=== PATIENT | male | born 1990 | race Caucasian/White ===

== ENCOUNTER 2018-05-20 19:20 | Observation (INO) | payer OTHER ==
--- NOTE | 2018-05-20 20:22 | EDM.PDOC ---
ED HPI GENERAL MEDICAL PROBLEM - General Chief Complaint: Fever Stated Complaint: PT HAS INFECTION AND FEVER Time Seen by Provider: 05/20/18 20:22 Source of Information: Reports: Patient History Limitations: Reports: No Limitations - History of Present Illness INITIAL COMMENTS - FREE TEXT/NARRATIVE: HISTORY AND PHYSICAL: History of present illness: Patient is a 27-year-old male who presents to the ED today with concern of an infection on his buttocks. Patient states that over the past week the infection has spread. He states over the past 3 days he started to have fevers and chills at home but never checked temperature. He states he's been taking Tylenol for relief of pain. 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 He states his last use of methamphetamine was yesterday. Patient does also smoke a pack a day for 10 years. He denies injection with needles into his buttocks. Patient denies scrotal or testicular pain or tenderness. She states that last bowel movement was 2 days ago and was severely painful to half. Patient states he has been able to urinate per his normal. He denies any blood in his stool or urine. Review of systems: As per history of present illness and below otherwise all systems reviewed and negative. Past medical history: As per history of present illness and as reviewed below otherwise noncontributory. Surgical history: As per history of present illness and as reviewed below otherwise noncontributory. Social history: No reported history of drug or alcohol abuse. Family history: As per history of present illness and as reviewed below otherwise noncontributory. Physical exam: General: Patient sitting comfortably in no acute distress and nontoxic appearing HEENT: Atraumatic, normocephalic, pupils reactive, negative for conjunctival pallor or scleral icterus, mucous membranes moist, throat clear, neck supple, nontender, trachea midline. No meningeal signs. Lungs: Clear to auscultation, breath sounds equal bilaterally, chest nontender. Heart: S1S2, regular, negative for clicks, rubs, or overt murmur. Abdomen: Soft, nondistended, nontender. Negative for masses or hepatosplenomegaly. Negative for costovertebral tenderness. No rigidity, rebound , guarding. Pelvis: Stable nontender. Genitourinary: Deferred. Rectal: Rectal tone is intact. Patient does have an 11 cm x 12 cm area of induration and an additional 3 cm circumference outside of this of erythema. Severe pain to palpation. And unable to fully evaluate the depth of the induration due to pain. Extremities: Atraumatic, negative for cords or calf pain. Neurovascular unremarkable. Neuro: Awake, alert, oriented. Cranial nerves II through XII unremarkable. Cerebellum unremarkable. Motor and sensory unremarkable throughout. Exam nonfocal. Notes: Have started IV antibiotics in the ER. Awaiting CT. Did call Dr. Brown, general surgery, who recommended calling the hospitalist for admission. Did discuss patient with Dr. Funes who will admit patient for observation. Diagnostics: CBC, CMP, UA, blood cultures 2, lactate, pelvic CT Therapeutics: Saline, Vancomycin, Flagyl, Zosyn Impression: Abscess, buttocks Leukocytosis with fever Plan: 1. Admit to observation Definitive disposition and diagnosis as appropriate pending reevaluation and review of above. Right Butt Cheek Pain Score (Numeric/FACES): 9 - Related Data Allergies Allergy/AdvReac Type Severity Reaction Status Date / Time No Known Allergies Allergy Verified 05/20/18 20:07 Home Meds: Home Meds . [No Known Home Meds] 05/20/18 [History] Past Medical History - Past Health History Medical/Surgical History: Denies Medical/Surgical History - Infectious Disease History Infectious Disease History: Reports: Chicken Pox Social & Family History - Family History Family Medical History: Noncontributory - Tobacco Use Smoking Status *Q: Current Every Day Smoker Years of Tobacco use: 11 Packs/Tins Daily: 1 - Caffeine Use Caffeine Use: Reports: Coffee, Energy Drinks - Recreational Drug Use Recreational Drug Use: Yes Drug Use in Last 12 Months: Yes Recreational Drug Type: Reports: Marijuana/Hashish, Methamphetamine ED ROS ENT - Review of Systems Review Of Systems: ROS reveals no pertinent complaints other than HPI. ED EXAM, ENT - Physical Exam Exam: See Below (see dictation) Course - Vital Signs Last Recorded V/S: Last Vital Signs Temp 97.6 F 05/20/18 21:17 Pulse 117 H 05/20/18 20:07 Resp 18 05/20/18 20:07 BP 139/69 05/20/18 20:07 Pulse Ox 97 05/20/18 20:07 - Orders/Labs/Meds Orders: Active Orders 24 hr Category Date Time Status Admission Status [Patient Status] [ADT] Stat ADT 05/20/18 21:37 Active Pelvis w Cont [CT] Stat Exams 05/20/18 20:29 Ordered CULTURE BLOOD [BC] Stat Lab 05/20/18 20:43 Received CULTURE BLOOD [BC] Stat Lab 05/20/18 20:51 Received Piperacillin/Tazobactam [Piperacil-Tazobact] 3.375 gm Med 05/20/18 21:36 Active Sodium Chloride 0.9% [Normal Saline] 50 ml IV ONETIME Vancomycin [Vancocin] 1 gm Med 05/20/18 21:03 Active Sodium Chloride 0.9% [Normal Saline] 250 ml IV ONETIME metroNIDAZOLE/Normal Saline [Flagyl 500 MG in NS 100 ML Med 05/20/18 21:36 Active ] 500 mg Premix Bag 1 bag IV ONETIME Blood Culture x2 Reflex Set [OM.PC] Stat Oth 05/20/18 20:28 Ordered Medication Orders Vancomycin HCl 1 gm/ Sodium (Chloride) 250 mls @ 250 mls/hr IV ONETIME ONE Stop: 05/20/18 22:02 Metronidazole 500 mg/ Premix 100 mls @ 100 mls/hr IV ONETIME ONE Stop: 05/20/18 22:35 Piperacillin Sod/Tazobactam (Sod 3.375 gm/ Sodium Chloride) 50 mls @ 100 mls/ hr IV ONETIME ONE Stop: 05/20/18 22:05 Last Admin: 05/20/18 21:50 Dose: 100 mls/hr Labs: Laboratory Tests 05/20/18 05/20/18 05/20/18 Range/Units 20:51 20:51 20:51 WBC 16.54 H (4.0-11.0) K/uL RBC 4.51 (4.50-5.90) M/uL Hgb 13.6 (13.0-17.0) g/dL Hct 39.4 (38.0-50.0) % MCV 87.4 (80.0-98.0) fL MCH 30.2 (27.0-32.0) pg MCHC 34.5 (31.0-37.0) g/dL RDW Std Deviation 42.7 (28.0-62.0) fl RDW Coeff of Kalin 13 (11.0-15.0) % Plt Count 199 (150-400) K/uL MPV 10.30 (7.40-12.00) fL Neut % (Auto) 80.2 H (48.0-80.0) % Lymph % (Auto) 8.5 L (16.0-40.0) % [place] % (Auto) 11.2 (0.0-15.0) % Eos % (Auto) 0.0 (0.0-7.0) % Baso % (Auto) 0.1 (0.0-1.5) % Neut # (Auto) 13.3 H (1.4-5.7) K/uL Lymph # (Auto) 1.4 (0.6-2.4) K/uL [place] # (Auto) 1.9 H (0.0-0.8) K/uL Eos # (Auto) 0.0 (0.0-0.7) K/uL Baso # (Auto) 0.0 (0.0-0.1) K/uL Nucleated RBC % 0.0 /100WBC Nucleated RBCs # 0 K/uL Lactate 0.8 (0.20-2.00) mmol/L Sodium 134 L (136-148) mmol/L Potassium 4.0 (3.5-5.1) mmol/L Chloride 99 (98-107) mmol/L Carbon Dioxide 25.5 (21.0-32.0) mmol/L BUN 13 (7.0-18.0) mg/dL Creatinine 0.8 (0.8-1.3) mg/dL Est Cr Clr Drug Dosing 149.54 mL/min Estimated GFR (MDRD) > 60.0 ml/min Glucose 139 H (74-106) mg/dL Calcium 8.6 (8.5-10.1) mg/dL Total Bilirubin 0.7 (0.2-1.0) mg/dL AST 48 H (15-37) IU/L ALT 38 (14-63) IU/L Alkaline Phosphatase 85 (46-116) U/L Total Protein 7.2 (6.4-8.2) g/dL Albumin 2.9 L (3.4-5.0) g/dL Globulin 4.3 H (2.6-4.0) g/dL Albumin/Globulin Ratio 0.7 L (0.9-1.6) Meds: Medications Generic Name Dose Route Start Last Admin Trade Name Brianq PRN Reason Stop Dose Admin Vancomycin HCl 1 gm/ Sodium 250 mls @ 250 mls/hr 05/20/18 21:03 Chloride IV 05/20/18 22:02 ONETIME ONE Metronidazole 500 mg/ Premix 100 mls @ 100 mls/hr 05/20/18 21:36 IV 05/20/18 22:35 ONETIME ONE Piperacillin Sod/Tazobactam 50 mls @ 100 mls/hr 05/20/18 21:36 05/20/18 21:50 Sod 3.375 gm/ Sodium Chloride IV 05/20/18 22:05 100 mls/hr ONETIME ONE Administration Discontinued Medications Generic Name Dose Route Start Last Admin Trade Name Brianq PRN Reason Stop Dose Admin Acetaminophen 1,000 mg 05/20/18 20:23 05/20/18 20:47 Tylenol Extra Strength PO 05/20/18 20:24 1,000 mg ONETIME ONE Administration Sodium Chloride 1,000 mls @ 999 mls/hr 05/20/18 20:56 05/20/18 21:48 Normal Saline IV 05/20/18 21:56 999 mls/hr STAT ONE Administration Ketorolac Tromethamine 30 mg 05/20/18 20:56 05/20/18 21:49 Toradol IVPUSH 05/20/18 20:57 30 mg ONETIME ONE Administration Departure - Departure Time of Disposition: 22:11 Disposition: Refer to Observation Clinical Impression: Cellulitis and abscess of buttock Leukocytosis Qualifiers: Leukocytosis type: unspecified Qualified Code(s): D72.829 - Elevated white blood cell count, unspecified - Discharge Information Referrals: PCP,None [Primary Care Provider] - Forms: ED Department Discharge - My Orders Last 24 Hours: My Active Orders 05/20/18 20:28 Blood Culture x2 Reflex Set [OM.PC] Stat 05/20/18 20:29 Pelvis w Cont [CT] Stat 05/20/18 20:43 CULTURE BLOOD [BC] Stat 05/20/18 20:51 CULTURE BLOOD [BC] Stat 05/20/18 21:03 Vancomycin [Vancocin] 1 gm Sodium Chloride 0.9% [Normal Saline] 250 ml IV ONETIME 05/20/18 21:36 Piperacillin/Tazobactam [Piperacil-Tazobact] 3.375 gm Sodium Chloride 0.9% [ Normal Saline] 50 ml IV ONETIME metroNIDAZOLE/Normal Saline [Flagyl 500 MG in NS 100 ML] 500 mg Premix Bag 1 bag IV ONETIME 05/20/18 21:37 Admission Status [Patient Status] [ADT] Stat - Assessment/Plan Last 24 Hours: My Active Orders 05/20/18 20:28 Blood Culture x2 Reflex Set [OM.PC] Stat 05/20/18 20:29 Pelvis w Cont [CT] Stat 05/20/18 20:43 CULTURE BLOOD [BC] Stat 05/20/18 20:51 CULTURE BLOOD [BC] Stat 05/20/18 21:03 Vancomycin [Vancocin] 1 gm Sodium Chloride 0.9% [Normal Saline] 250 ml IV ONETIME 05/20/18 21:36 Piperacillin/Tazobactam [Piperacil-Tazobact] 3.375 gm Sodium Chloride 0.9% [ Normal Saline] 50 ml IV ONETIME metroNIDAZOLE/Normal Saline [Flagyl 500 MG in NS 100 ML] 500 mg Premix Bag 1 bag IV ONETIME 05/20/18 21:37 Admission Status [Patient Status] [ADT] Stat
[2018-05-20] MEDS ORDERED: Acetaminophen 500 MG Tab PO ONE (20:23)
[2018-05-20] MEDS ORDERED: Ketorolac 30 MG/ML SDV IVPUSH ONE (20:56)
[2018-05-20] MEDS ORDERED: Sodium Chloride 0.9% 1,000 ML IV ONE (20:56)
[2018-05-20] MEDS ORDERED: Piperacillin/Tazobactam 3.375 GM in Sodium Chloride 0.9% 50 ML IV ONE (21:36)
[2018-05-20] MEDS ORDERED: metroNIDAZOLE/Normal Saline 500 MG in Premix Bag 1 BAG IV ONE (21:36)
[2018-05-20 21:39] LABS: CHLORIDE,CL 99 mmol/L (98-107); SODIUM,NA 134 mmol/L (136-148)
[2018-05-20] MEDS ORDERED: Iopamidol 755 MG/ML 500 ML Multipack Bottle IVPUSH STA (22:12)
[2018-05-20] MEDS ORDERED: Acetaminophen 325 MG Tab PO PRN (22:28)
[2018-05-20] MEDS ORDERED: Morphine 2 MG/ML Syringe IVPUSH PRN (22:29)
[2018-05-20] MEDS ORDERED: Temazepam 15 MG Cap PO PRN (22:30)
--- NOTE | 2018-05-20 22:41 | CT ---
INDICATION: Right buttock abscess TECHNIQUE: CT pelvis with 90 cc Isovue 370 intravenous contrast. COMPARISON: None FINDINGS: No dilated loops of large or small intestine. Appendix is unremarkable. Bladder and prostate unremarkable. No perianal abscess. There is prominent fat stranding in the right posterior thigh and buttock subcutaneous tissues. This is somewhat more focal with some hazy edema of inferomedial to the right ischium although without a well-defined rim enhancing abscess. Mild associated skin thickening. No intramuscular involvement. IMPRESSION: 1. Skin thickening and fat stranding within the right buttock subcutaneous tissues consistent with cellulitis. There is a somewhat more focal component inferomedial to the right ischium although without a well-defined/drainable abscess. No osteomyelitis or intramuscular involvement. Please note that all CT scans at this facility use dose modulation, iterative reconstruction, and/or weight-based dosing when appropriate to reduce radiation dose to as low as reasonably achievable. Dictated by Be Cortes MD @ May 20 2018 10:29PM Signed by Dr. Be Cortes @ May 20 2018 10:40PM
[2018-05-20] MEDS: oxyCODONE 5 MG Tab PO PRN (23:50)
[2018-05-20] MEDS: Piperacillin/Tazobactam 4.5 GM in Sodium Chloride 0.9% 100 ML IV SCH (23:53)
[2018-05-20] MEDS: Sodium Chloride 0.9% 1,000 ML IV SCH (23:55)
[2018-05-21] MEDS: Piperacillin/Tazobactam 4.5 GM in Sodium Chloride 0.9% 100 ML IV SCH ×3 (05:34→22:01)
[2018-05-21 06:17] LABS: CHLORIDE,CL 104 mmol/L (98-107); SODIUM,NA 138 mmol/L (136-148)
--- NOTE | 2018-05-21 07:08 | PCM.SN ---
- Free Text/Narrative Note: Pt seen, chart reviewed; cellulitis, no drainable abscess; continue iv abx; no surgery planned, will follow w you; [id number]
[2018-05-21] MEDS: oxyCODONE 5 MG Tab PO PRN ×2 (08:52→19:45)
--- NOTE | 2018-05-21 09:55 | PCM.HP ---
<Yamilet Zacarias M - Last Filed: 05/21/18 12:42> H&P History of Present Illness - General Date of Service: 05/21/18 Admit Problem/Dx: Admission Diagnosis/Problem Admission Diagnosis/Problem Cellulitis/Abscess R buttocks Source of Information: Patient History Limitations: Reports: No Limitations - History of Present Illness Initial Comments - Free Text/Narative: This 27 year old male with pmh of poly substance abuse presented to the ED last evening with complaints of fevers, chills and a sore buttocks that was red. He reports the redness and swelling to his buttocks started 1 week ago and has progressively worsened and become more and more painful. The fevers started 3 days ago and have not stopped. He denies chest pain or SOB. No abdominal pain or problems urinating. He reports daily marijuana use and weekly methamphetamine use. He reports in he was released from [facility], he injected methamphetamines quite heavily and has since stopped injecting and only smokes it now and is trying to quit so using it weekly. He smokes 1 ppd cigarettes as well and has no interest in quitting currently. In the ED leukocytosis of 16,540 was noted, BMP WNL. CT of pelvis obtained secondary to cellulitis on R buttock, this revealed skin thickening and fat stranding within the right buttocks subcutaneous tissues consistent with cellulitis, no well defined/drainable abscess. Dr Brown consulted in ED. He will be admitted observation for right buttocks cellulitis possible abscess. Right Butt Cheek Pain Score (Numeric/FACES): 8 - Related Data Allergies/Adverse Reactions: Allergies Allergy/AdvReac Type Severity Reaction Status Date / Time No Known Allergies Allergy Verified 05/20/18 20:07 Home Medications: Home Meds . [No Known Home Meds] 05/20/18 [History] Past Medical History - Past Health History Medical/Surgical History: Denies Medical/Surgical History Cardiovascular History: Reports: None. Denies: CAD, High Cholesterol, Hypertension, ID Respiratory History: Reports: None. Denies: Asthma Gastrointestinal History: Reports: None Psychiatric History: Reports: Addiction Endocrine/Metabolic History: Reports: None. Denies: Diabetes, Type II - Infectious Disease History Infectious Disease History: Reports: Chicken Pox - Past Surgical History Cardiovascular Surgical History: Reports: None GI Surgical History: Reports: None Social & Family History - Family History Family Medical History: Noncontributory - Tobacco Use Smoking Status *Q: Current Every Day Smoker Years of Tobacco use: 11 Packs/Tins Daily: 1 Used Tobacco, but Quit: No - Caffeine Use Caffeine Use: Reports: Coffee, Energy Drinks - Alcohol Use Number of Drinks Per Day: 1 - Recreational Drug Use Recreational Drug Use: Yes Drug Use in Last 12 Months: Yes Recreational Drug Type: Reports: Marijuana/Hashish, Methamphetamine (uses weekly and smokes. Hx of injection.) Recreational Drug Use Frequency: Daily H&P Review of Systems - Review of Systems: Review Of Systems: See Below General: Reports: Fever, Chills, Malaise HEENT: Reports: No Symptoms. Denies: Headaches, Sinus Congestion, Sore Throat, Vertigo Pulmonary: Reports: No Symptoms. Denies: Shortness of Breath, Wheezing, Cough, Sputum Cardiovascular: Reports: No Symptoms. Denies: Chest Pain, Edema Gastrointestinal: Reports: No Symptoms. Denies: Abdominal Pain, Black Stool, Bloody Stool, Nausea, Vomiting Genitourinary: Reports: No Symptoms Musculoskeletal: Reports: No Symptoms Skin: Reports: Erythema (R buttocks and painful with movement. No drainage) Neurological: Reports: No Symptoms Hematologic/Lymphatic: Reports: No Symptoms Immunologic: Reports: No Symptoms Exam - Exam Exam: See Below - Vital Signs Vital Signs: Last Vital Signs Temp 99.1 F 05/21/18 08:56 Pulse 92 05/21/18 08:56 Resp 18 05/21/18 08:56 BP 140/60 05/21/18 08:56 Pulse Ox 97 05/21/18 08:56 Weight: 226.2 kg - Exam General: Alert, Oriented, Cooperative HEENT: Conjunctiva Clear, Mucosa Moist & [place], Posterior Pharynx Clear Neck: Supple, Trachea Midline Lungs: Clear to Auscultation, Normal Respiratory Effort Cardiovascular: Regular Rate, Regular Rhythm GI/Abdominal Exam: Normal Bowel Sounds, Soft, Non-Tender, No Mass Extremities: Normal Inspection, Normal Range of Motion, Non-Tender Skin: Other (3x3 in indurated region to R buttock noted. Warm and tender. No fluctuance of crepitus noted. Pain tolerable. Other abrasions noted to buttocks bilaterally, but not s/s of infection to theres. scabbed and various stages of healing.) Neuro Extensive - Mental Status: Alert, Oriented x3 Neuro Extensive - Motor, Sensory, Reflexes: CN II-XII Intact - Patient Data Lab Results Last 24 hrs: Laboratory Results - last 24 hr 05/20/18 05/20/18 05/20/18 Range/Units 20:51 20:51 20:51 WBC 16.54 H (4.0-11.0) K/uL RBC 4.51 (4.50-5.90) M/uL Hgb 13.6 (13.0-17.0) g/dL Hct 39.4 (38.0-50.0) % MCV 87.4 (80.0-98.0) fL MCH 30.2 (27.0-32.0) pg MCHC 34.5 (31.0-37.0) g/dL RDW Std Deviation 42.7 (28.0-62.0) fl RDW Coeff of Kalin 13 (11.0-15.0) % Plt Count 199 (150-400) K/uL MPV 10.30 (7.40-12.00) fL Neut % (Auto) 80.2 H (48.0-80.0) % Lymph % (Auto) 8.5 L (16.0-40.0) % Riley % (Auto) 11.2 (0.0-15.0) % Eos % (Auto) 0.0 (0.0-7.0) % Baso % (Auto) 0.1 (0.0-1.5) % Neut # (Auto) 13.3 H (1.4-5.7) K/uL Lymph # (Auto) 1.4 (0.6-2.4) K/uL Riley # (Auto) 1.9 H (0.0-0.8) K/uL Eos # (Auto) 0.0 (0.0-0.7) K/uL Baso # (Auto) 0.0 (0.0-0.1) K/uL Nucleated RBC % 0.0 /100WBC Nucleated RBCs # 0 K/uL ESR (0-14) mm/hr Lactate 0.8 (0.20-2.00) mmol/L Sodium 134 L (136-148) mmol/L Potassium 4.0 (3.5-5.1) mmol/L Chloride 99 (98-107) mmol/L Carbon Dioxide 25.5 (21.0-32.0) mmol/L BUN 13 (7.0-18.0) mg/dL Creatinine 0.8 (0.8-1.3) mg/dL Est Cr Clr Drug Dosing 149.54 mL/min Estimated GFR (MDRD) > 60.0 ml/min Glucose 139 H (74-106) mg/dL Calcium 8.6 (8.5-10.1) mg/dL Total Bilirubin 0.7 (0.2-1.0) mg/dL AST 48 H (15-37) IU/L ALT 38 (14-63) IU/L Alkaline Phosphatase 85 (46-116) U/L C-Reactive Protein (0.00-0.90) mg/dL Total Protein 7.2 (6.4-8.2) g/dL Albumin 2.9 L (3.4-5.0) g/dL Globulin 4.3 H (2.6-4.0) g/dL Albumin/Globulin Ratio 0.7 L (0.9-1.6) 05/21/18 05/21/18 Range/Units 05:28 05:28 WBC 14.54 H (4.0-11.0) K/uL RBC 4.37 L (4.50-5.90) M/uL Hgb 13.0 (13.0-17.0) g/dL Hct 38.9 (38.0-50.0) % MCV 89.0 (80.0-98.0) fL MCH 29.7 (27.0-32.0) pg MCHC 33.4 (31.0-37.0) g/dL RDW Std Deviation 43.9 (28.0-62.0) fl RDW Coeff of Kalin 13 (11.0-15.0) % Plt Count 155 (150-400) K/uL MPV 10.30 (7.40-12.00) fL Neut % (Auto) 81.2 H (48.0-80.0) % Lymph % (Auto) 6.4 L (16.0-40.0) % Riley % (Auto) 12.0 (0.0-15.0) % Eos % (Auto) 0.3 (0.0-7.0) % Baso % (Auto) 0.1 (0.0-1.5) % Neut # (Auto) 11.8 H (1.4-5.7) K/uL Lymph # (Auto) 0.9 (0.6-2.4) K/uL Riley # (Auto) 1.8 H (0.0-0.8) K/uL Eos # (Auto) 0.0 (0.0-0.7) K/uL Baso # (Auto) 0.0 (0.0-0.1) K/uL Nucleated RBC % 0.0 /100WBC Nucleated RBCs # 0 K/uL ESR 58 H (0-14) mm/hr Lactate (0.20-2.00) mmol/L Sodium 138 (136-148) mmol/L Potassium 3.5 (3.5-5.1) mmol/L Chloride 104 (98-107) mmol/L Carbon Dioxide 25.9 (21.0-32.0) mmol/L BUN 10 (7.0-18.0) mg/dL Creatinine 0.8 (0.8-1.3) mg/dL Est Cr Clr Drug Dosing 145.11 mL/min Estimated GFR (MDRD) > 60.0 ml/min Glucose 97 (74-106) mg/dL Calcium 8.3 L (8.5-10.1) mg/dL Total Bilirubin (0.2-1.0) mg/dL AST (15-37) IU/L ALT (14-63) IU/L Alkaline Phosphatase (46-116) U/L C-Reactive Protein 23.40 H (0.00-0.90) mg/dL Total Protein (6.4-8.2) g/dL Albumin (3.4-5.0) g/dL Globulin (2.6-4.0) g/dL Albumin/Globulin Ratio (0.9-1.6) Result Diagrams: 05/21/18 05:28 05/21/18 05:28 - Problem List (1) Sepsis SNOMED Code(s): 01194085 ICD Code: A41.9 - SEPSIS, UNSPECIFIED ORGANISM Status: Acute Current Visit: Yes Qualifiers: Sepsis type: sepsis due to unspecified organism Qualified Code(s): A41.9 - Sepsis, unspecified organism (2) Cellulitis and abscess of buttock SNOMED Code(s): 471441912 ICD Code: L02.31 - CUTANEOUS ABSCESS OF BUTTOCK; L03.317 - CELLULITIS OF BUTTOCK Status: Acute Current Visit: Yes (3) Leukocytosis SNOMED Code(s): 275541767, 468973309 ICD Code: D72.829 - ELEVATED WHITE BLOOD CELL COUNT, UNSPECIFIED Status: Acute Current Visit: Yes Qualifiers: Leukocytosis type: unspecified Qualified Code(s): D72.829 - Elevated white blood cell count, unspecified (4) Smoker SNOMED Code(s): 00033905 ICD Code: F17.200 - NICOTINE DEPENDENCE, UNSPECIFIED, UNCOMPLICATED Status : Chronic Current Visit: Yes (5) Methamphetamine abuse SNOMED Code(s): 782286411 ICD Code: F15.10 - OTHER STIMULANT ABUSE, UNCOMPLICATED Status: Acute Current Visit: Yes Problem List Initiated/Reviewed/Updated: Yes Orders Last 24hrs: Active Orders 24 hr Category Date Time Status Admission Status [Patient Status] [ADT] Stat ADT 05/20/18 21:37 Active Regular Diet [DIET] Diet 05/21/18 Breakfast Active CULTURE BLOOD [BC] Stat Lab 05/20/18 20:43 Received CULTURE BLOOD [BC] Stat Lab 05/20/18 20:51 Received VANCOMYCIN TROUGH [CHEM] Timed Lab 05/22/18 06:00 Ordered Acetaminophen [Tylenol] Med 05/20/18 22:28 Active 650 mg PO Q4H PRN Morphine Med 05/20/18 22:29 Active 2 mg IVPUSH Q3H PRN Pharmacy to Dose - Vancomycin Med 05/20/18 22:30 Pending 1 dose .XX ASDIRECTED Piperacillin/Tazobactam [Piperacil-Tazobact] 4.5 gm Med 05/20/18 22:30 Active Sodium Chloride 0.9% [Normal Saline] 100 ml IV Q8H Sodium Chloride 0.9% [Normal Saline] 1,000 ml Med 05/20/18 22:30 Active IV ASDIRECTED Temazepam [Restoril] Med 05/20/18 22:30 Active 15 mg PO BEDTIME PRN Vancomycin 1.25 gm Med 05/20/18 23:00 Active Sodium Chloride 0.9% [Normal Saline] 250 ml IV Q8H oxyCODONE Med 05/20/18 22:29 Active 5 mg PO Q4H PRN Blood Culture x2 Reflex Set [OM.PC] Stat Oth 05/20/18 20:28 Ordered Medication Orders Acetaminophen (Tylenol) 650 mg PO Q4H PRN PRN Reason: Fever Piperacillin Sod/Tazobactam (Sod 4.5 gm/ Sodium Chloride) 100 mls @ 100 mls/hr IV Q8H [facility] Last Admin: 05/21/18 05:34 Dose: 100 mls/hr Infusion: 05/21/18 00:53 Dose: 100 mls/hr Admin: 05/20/18 23:53 Dose: 100 mls/hr Sodium Chloride (Normal Saline) 1,000 mls @ 125 mls/hr IV ASDIRECTED [facility] Last Admin: 05/20/18 23:55 Dose: 125 mls/hr Vancomycin HCl 1.25 gm/ Sodium (Chloride) 250 mls @ 166.667 mls/hr IV Q8H [facility] Last Admin: 05/21/18 08:45 Dose: 166.667 mls/hr Infusion: 05/21/18 02:21 Dose: 166.667 mls/hr Admin: 05/21/18 00:51 Dose: 166.667 mls/hr Morphine Sulfate (Morphine) 2 mg IVPUSH Q3H PRN PRN Reason: Pain (severe 7-10) Oxycodone HCl (Oxycodone) 5 mg PO Q4H PRN PRN Reason: Pain (moderate 4-6) Last Admin: 05/21/18 08:52 Dose: 5 mg Admin: 05/20/18 23:50 Dose: 5 mg Temazepam (Restoril) 15 mg PO BEDTIME PRN PRN Reason: Insomnia Vancomycin HCl (Pharmacy To Dose - Vancomycin) 1 dose .XX ASDIRECTED [facility] Assessment/Plan Comment:: This 27 year old male admitted with cellulitis and possible abscess to R buttock. 1. Cellulitis with possible abscess to R buttocks: Dr Brown consulted. Please see his note. No drainable region noted yet. Will monitor. BC pending. Continue with Vancomycin and Zosyn at this time. I appreciated Dr Brown's assistance with this case. BP stable. Sepsis noted on admission secondary to infection, HR and fever noted. IVFs given and BP stable, HR normalized. Currently has been afebrile since ED arrival. VTE prophylaxis: SCDs Dispo: 1-2 days pending improvement. <ShantelGabriele Watts - Last Filed: 05/21/18 13:01> H&P History of Present Illness - General Admit Problem/Dx: Admission Diagnosis/Problem Admission Diagnosis/Problem Abscess - History of Present Illness Initial Comments - Free Text/Narative: I have examined the patient independently of Yamilet Zacarias CNP. I have discussed the case with her. I have reviewed and agree with the plan of care as outlined by her. Please see orders. CT reviewed by me. Exam - Vital Signs Vital Signs: Last Vital Signs Temp 37.3 C 05/21/18 11:39 Pulse 100 05/21/18 11:39 Resp 16 05/21/18 11:39 BP 130/71 05/21/18 11:39 Pulse Ox 97 05/21/18 11:39 - Patient Data Lab Results Last 24 hrs: Laboratory Results - last 24 hr 05/20/18 05/20/18 05/20/18 Range/Units 20:51 20:51 20:51 WBC 16.54 H (4.0-11.0) K/uL RBC 4.51 (4.50-5.90) M/uL Hgb 13.6 (13.0-17.0) g/dL Hct 39.4 (38.0-50.0) % MCV 87.4 (80.0-98.0) fL MCH 30.2 (27.0-32.0) pg MCHC 34.5 (31.0-37.0) g/dL RDW Std Deviation 42.7 (28.0-62.0) fl RDW Coeff of Kalin 13 (11.0-15.0) % Plt Count 199 (150-400) K/uL MPV 10.30 (7.40-12.00) fL Neut % (Auto) 80.2 H (48.0-80.0) % Lymph % (Auto) 8.5 L (16.0-40.0) % Riley % (Auto) 11.2 (0.0-15.0) % Eos % (Auto) 0.0 (0.0-7.0) % Baso % (Auto) 0.1 (0.0-1.5) % Neut # (Auto) 13.3 H (1.4-5.7) K/uL Lymph # (Auto) 1.4 (0.6-2.4) K/uL Riley # (Auto) 1.9 H (0.0-0.8) K/uL Eos # (Auto) 0.0 (0.0-0.7) K/uL Baso # (Auto) 0.0 (0.0-0.1) K/uL Nucleated RBC % 0.0 /100WBC Nucleated RBCs # 0 K/uL ESR (0-14) mm/hr Lactate 0.8 (0.20-2.00) mmol/L Sodium 134 L (136-148) mmol/L Potassium 4.0 (3.5-5.1) mmol/L Chloride 99 (98-107) mmol/L Carbon Dioxide 25.5 (21.0-32.0) mmol/L BUN 13 (7.0-18.0) mg/dL Creatinine 0.8 (0.8-1.3) mg/dL Est Cr Clr Drug Dosing 149.54 mL/min Estimated GFR (MDRD) > 60.0 ml/min Glucose 139 H (74-106) mg/dL Calcium 8.6 (8.5-10.1) mg/dL Total Bilirubin 0.7 (0.2-1.0) mg/dL AST 48 H (15-37) IU/L ALT 38 (14-63) IU/L Alkaline Phosphatase 85 (46-116) U/L C-Reactive Protein (0.00-0.90) mg/dL Total Protein 7.2 (6.4-8.2) g/dL Albumin 2.9 L (3.4-5.0) g/dL Globulin 4.3 H (2.6-4.0) g/dL Albumin/Globulin Ratio 0.7 L (0.9-1.6) 05/21/18 05/21/18 Range/Units 05:28 05:28 WBC 14.54 H (4.0-11.0) K/uL RBC 4.37 L (4.50-5.90) M/uL Hgb 13.0 (13.0-17.0) g/dL Hct 38.9 (38.0-50.0) % MCV 89.0 (80.0-98.0) fL MCH 29.7 (27.0-32.0) pg MCHC 33.4 (31.0-37.0) g/dL RDW Std Deviation 43.9 (28.0-62.0) fl RDW Coeff of Kalin 13 (11.0-15.0) % Plt Count 155 (150-400) K/uL MPV 10.30 (7.40-12.00) fL Neut % (Auto) 81.2 H (48.0-80.0) % Lymph % (Auto) 6.4 L (16.0-40.0) % Riley % (Auto) 12.0 (0.0-15.0) % Eos % (Auto) 0.3 (0.0-7.0) % Baso % (Auto) 0.1 (0.0-1.5) % Neut # (Auto) 11.8 H (1.4-5.7) K/uL Lymph # (Auto) 0.9 (0.6-2.4) K/uL Riley # (Auto) 1.8 H (0.0-0.8) K/uL Eos # (Auto) 0.0 (0.0-0.7) K/uL Baso # (Auto) 0.0 (0.0-0.1) K/uL Nucleated RBC % 0.0 /100WBC Nucleated RBCs # 0 K/uL ESR 58 H (0-14) mm/hr Lactate (0.20-2.00) mmol/L Sodium 138 (136-148) mmol/L Potassium 3.5 (3.5-5.1) mmol/L Chloride 104 (98-107) mmol/L Carbon Dioxide 25.9 (21.0-32.0) mmol/L BUN 10 (7.0-18.0) mg/dL Creatinine 0.8 (0.8-1.3) mg/dL Est Cr Clr Drug Dosing 145.11 mL/min Estimated GFR (MDRD) > 60.0 ml/min Glucose 97 (74-106) mg/dL Calcium 8.3 L (8.5-10.1) mg/dL Total Bilirubin (0.2-1.0) mg/dL AST (15-37) IU/L ALT (14-63) IU/L Alkaline Phosphatase (46-116) U/L C-Reactive Protein 23.40 H (0.00-0.90) mg/dL Total Protein (6.4-8.2) g/dL Albumin (3.4-5.0) g/dL Globulin (2.6-4.0) g/dL Albumin/Globulin Ratio (0.9-1.6) Result Diagrams: 05/21/18 05:28 05/21/18 05:28 Orders Last 24hrs: Active Orders 24 hr Category Date Time Status Admission Status [Patient Status] [ADT] Stat ADT 05/20/18 21:37 Active Antiembolic Devices [RC] PER UNIT ROUTINE Care 05/21/18 12:56 Active Intake and Output [RC] QSHIFT Care 05/21/18 12:55 Active May Shower [RC] ASDIRECTED Care 05/21/18 12:55 Active Oxygen Therapy [RC] PRN Care 05/21/18 12:55 Active Up ad [place] [RC] ASDIRECTED Care 05/21/18 12:55 Active VTE/DVT Education [RC] PER UNIT ROUTINE Care 05/21/18 12:55 Active Vital Signs [RC] Q4H Care 05/21/18 12:55 Active Regular Diet [DIET] Diet 05/21/18 Breakfast Active BASIC METABOLIC PANEL,BMP [CHEM] AM Lab 05/22/18 05:11 Ordered BASIC METABOLIC PANEL,BMP [CHEM] AM Lab 05/23/18 05:11 Ordered BASIC METABOLIC PANEL,BMP [CHEM] AM Lab 05/24/18 05:11 Ordered CBC WITH AUTO DIFF [HEME] AM Lab 05/22/18 05:11 Ordered CBC WITH AUTO DIFF [HEME] AM Lab 05/23/18 05:11 Ordered CBC WITH AUTO DIFF [HEME] AM Lab 05/24/18 05:11 Ordered CULTURE BLOOD [BC] Stat Lab 05/20/18 20:43 Received CULTURE BLOOD [BC] Stat Lab 05/20/18 20:51 Received VANCOMYCIN TROUGH [CHEM] Timed Lab 05/22/18 06:00 Ordered Acetaminophen [Tylenol] Med 05/20/18 22:28 Active 650 mg PO Q4H PRN Morphine Med 05/20/18 22:29 Active 2 mg IVPUSH Q3H PRN Pharmacy to Dose - Vancomycin Med 05/20/18 22:30 Pending 1 dose .XX ASDIRECTED Piperacillin/Tazobactam [Piperacil-Tazobact] 4.5 gm Med 05/20/18 22:30 Active Sodium Chloride 0.9% [Normal Saline] 100 ml IV Q8H Sodium Chloride 0.9% [Normal Saline] 1,000 ml Med 05/20/18 22:30 Active IV ASDIRECTED Temazepam [Restoril] Med 05/20/18 22:30 Active 15 mg PO BEDTIME PRN Vancomycin 1.25 gm Med 05/20/18 23:00 Active Sodium Chloride 0.9% [Normal Saline] 250 ml IV Q8H oxyCODONE Med 05/20/18 22:29 Active 5 mg PO Q4H PRN Blood Culture x2 Reflex Set [OM.PC] Stat Oth 05/20/18 20:28 Ordered Sequential Compression Device [OM.PC] Per Unit Routine Oth 05/21/18 12:56 Ordered Resuscitation Status Routine Resus Stat 05/21/18 12:55 Ordered Medication Orders Acetaminophen (Tylenol) 650 mg PO Q4H PRN PRN Reason: Fever Piperacillin Sod/Tazobactam (Sod 4.5 gm/ Sodium Chloride) 100 mls @ 100 mls/hr IV Q8H [facility] Last Admin: 05/21/18 05:34 Dose: 100 mls/hr Infusion: 05/21/18 00:53 Dose: 100 mls/hr Admin: 05/20/18 23:53 Dose: 100 mls/hr Sodium Chloride (Normal Saline) 1,000 mls @ 125 mls/hr IV ASDIRECTED [facility] Last Admin: 05/20/18 23:55 Dose: 125 mls/hr Vancomycin HCl 1.25 gm/ Sodium (Chloride) 250 mls @ 166.667 mls/hr IV Q8H [facility] Last Admin: 05/21/18 08:45 Dose: 166.667 mls/hr Infusion: 05/21/18 02:21 Dose: 166.667 mls/hr Admin: 05/21/18 00:51 Dose: 166.667 mls/hr Morphine Sulfate (Morphine) 2 mg IVPUSH Q3H PRN PRN Reason: Pain (severe 7-10) Oxycodone HCl (Oxycodone) 5 mg PO Q4H PRN PRN Reason: Pain (moderate 4-6) Last Admin: 05/21/18 08:52 Dose: 5 mg Admin: 05/20/18 23:50 Dose: 5 mg Temazepam (Restoril) 15 mg PO BEDTIME PRN PRN Reason: Insomnia Vancomycin HCl (Pharmacy To Dose - Vancomycin) 1 dose .XX ASDIRECTED [facility]
[2018-05-21] MEDS: Sodium Chloride 0.9% 1,000 ML IV SCH (13:07)
--- NOTE | 2018-05-21 13:27 | CONS ---
DATE OF CONSULTATION: 05/21/2018 DATE OF : 1990 PRIMARY CARE PHYSICIAN: None PCP Consult from Dr. Gabriele Funes. CONCERNING QUESTION: Cellulitis on the right buttocks. HISTORY OF PRESENT ILLNESS: The patient is a 27-year-old gentleman and methamphetamine user, seen in emergency room last night for concern of infection on his buttocks. The patient stated that it has been going on for one week and denied trauma and admitted to a fever. He denied chills or diarrhea. Denied prior episode. Pain scale he said that time could be as bad as 9/10. PAST MEDICAL HISTORY: Significant for methamphetamine use. No diabetic, HI, CVA, hypertension. PAST SURGICAL HISTORY: No abdominal surgery. ALLERGIES: Please refer to nursing for details. MEDICATIONS: Please refer to nursing for details. PHYSICAL EXAMINATION: GENERAL: A very pleasant nice gentleman and lying comfortably in bed, in no acute distress. HEENT: Normocephalic and atraumatic. Sclerae anicteric. LUNGS: Clear to auscultation. HEART: Regular rate and rhythm. ABDOMEN: Soft, nondistended. No pulsating tender midline abdominal structure. No surgical scar. GENITOURINARY SYSTEM: The patient was examined in the prone position and was noted to have cellulitis in the gluteal area and induration. Skin is intact. Tender to the touch. The induration is mainly into the buttocks, does not seem to involve medial part of [place] or lower part of the scrotum. There is no sacral tenderness, and there is no fluctuation you can appreciate on examination. LABORATORY DATA: Upon consultation, white count is 14 down from 16 on admission, and also patient is afebrile this morning. A CAT scan report shows some haziness and skin thickening on the right buttock, but there is no drainable abscess or collection. IMPRESSION: Cellulitis of the right buttock. There is no collection that is amenable to surgical drainage from the CAT scan. We will continue with IV antibiotic as you are doing. We will follow the patient with you, and if white count is coming down and fever is resolved, likely the patient seemed to be responding to IV antibiotic, works very well. We will follow the patient with you. As always, thank you for the kind referral. ELLIOT LEDBETTER /[id number]
[2018-05-22] MEDS: Sodium Chloride 0.9% 1,000 ML IV SCH (02:06)
[2018-05-22] MEDS: Piperacillin/Tazobactam 4.5 GM in Sodium Chloride 0.9% 100 ML IV SCH ×3 (05:35→21:34)
[2018-05-22 06:42] LABS: CHLORIDE,CL 104 mmol/L (98-107); SODIUM,NA 140 mmol/L (136-148)
[2018-05-22] MEDS ORDERED: Vancomycin 2 GM in Sodium Chloride 0.9% 500 ML IV SCH (07:30)
--- NOTE | 2018-05-22 08:13 | PCM.PN ---
<Yamilet Zacarias M - Last Filed: 05/22/18 09:36> - General Info Date of Service: 05/22/18 Admission Dx/Problem (Free Text): Admission Diagnosis/Problem Admission Diagnosis/Problem Abscess Subjective Update: Reports pain is about the same. Feels somewhat better. Denies fever overnight. Reports wanting cigarette, undecided on nicotine patch. No chest pain or SOB. Functional Status: Reports: Pain Controlled, Ambulating, Urinating - Review of Systems General: Reports: No Symptoms. Denies: Fever, Weakness, Fatigue HEENT: Reports: No Symptoms. Denies: Headaches, Sore Throat, Visual Changes Pulmonary: Reports: No Symptoms. Denies: Shortness of Breath Cardiovascular: Reports: No Symptoms. Denies: Chest Pain Gastrointestinal: Reports: No Symptoms. Denies: Abdominal Pain, Diarrhea, Nausea, Vomiting Genitourinary: Reports: No Symptoms. Denies: Dysuria, Frequency, Burning Musculoskeletal: Reports: No Symptoms Skin: Reports: Other (pain to R buttocks, continues, no increase or decrease in pain. NO drainage) Neurological: Reports: No Symptoms Psychiatric: Reports: No Symptoms - Patient Data Vitals - Most Recent: Last Vital Signs Temp 99.1 F 05/22/18 04:00 Pulse 70 05/22/18 04:00 Resp 16 05/22/18 04:00 BP 121/61 05/22/18 04:00 Pulse Ox 94 L 05/22/18 04:00 Weight - Most Recent: 226.2 kg I&O - Last 24 Hours: Intake & Output 05/21/18 05/22/18 05/22/18 22:59 06:59 14:59 Intake Total 3050 1550 Output Total 280 1700 Balance 2770 -150 Lab Results Last 24 Hours: Laboratory Results - last 24 hr 05/22/18 05/22/18 05/22/18 Range/Units 06:05 06:05 06:05 WBC 9.84 (4.0-11.0) K/uL RBC 4.17 L (4.50-5.90) M/uL Hgb 12.5 L (13.0-17.0) g/dL Hct 37.3 L (38.0-50.0) % MCV 89.4 (80.0-98.0) fL MCH 30.0 (27.0-32.0) pg MCHC 33.5 (31.0-37.0) g/dL RDW Std Deviation 44.0 (28.0-62.0) fl RDW Coeff of Kalin 13 (11.0-15.0) % Plt Count 155 (150-400) K/uL MPV 10.60 (7.40-12.00) fL Neut % (Auto) 78.5 (48.0-80.0) % Lymph % (Auto) 9.1 L (16.0-40.0) % Green % (Auto) 11.7 (0.0-15.0) % Eos % (Auto) 0.5 (0.0-7.0) % Baso % (Auto) 0.2 (0.0-1.5) % Neut # (Auto) 7.7 H (1.4-5.7) K/uL Lymph # (Auto) 0.9 (0.6-2.4) K/uL Green # (Auto) 1.2 H (0.0-0.8) K/uL Eos # (Auto) 0.1 (0.0-0.7) K/uL Baso # (Auto) 0.0 (0.0-0.1) K/uL Nucleated RBC % 0.0 /100WBC Nucleated RBCs # 0 K/uL Sodium 140 (136-148) mmol/L Potassium 3.7 (3.5-5.1) mmol/L Chloride 104 (98-107) mmol/L Carbon Dioxide 27.0 (21.0-32.0) mmol/L BUN 5 L (7.0-18.0) mg/dL Creatinine 0.7 L (0.8-1.3) mg/dL Est Cr Clr Drug Dosing 165.84 mL/min Estimated GFR (MDRD) > 60.0 ml/min Glucose 91 (74-106) mg/dL Calcium 7.9 L (8.5-10.1) mg/dL Vancomycin Trough 5.4 (5.0-10.0) ug/mL Carmelo Results Last 24 Hours: Microbiology 05/20/18 20:51 Aerobic Blood Culture - Preliminary Blood - Arm, Left NO GROWTH AFTER 1 DAY Anaerobic Blood Culture - Preliminary NO GROWTH AFTER 1 DAY 05/20/18 20:43 Aerobic Blood Culture - Preliminary Blood - Arm, Left NO GROWTH AFTER 1 DAY Anaerobic Blood Culture - Preliminary NO GROWTH AFTER 1 DAY Med Orders - Current: Current Medications Acetaminophen (Tylenol) 650 mg PO Q4H PRN PRN Reason: Fever Last Admin: 05/21/18 22:10 Dose: 650 mg Piperacillin Sod/Tazobactam (Sod 4.5 gm/ Sodium Chloride) 100 mls @ 100 mls/hr IV Q8H [facility] Last Admin: 05/22/18 05:35 Dose: 100 mls/hr Sodium Chloride (Normal Saline) 1,000 mls @ 125 mls/hr IV ASDIRECTED [facility] Last Admin: 05/22/18 02:06 Dose: 125 mls/hr Vancomycin HCl 2 gm/ Sodium (Chloride) 500 mls @ 333.333 mls/hr IV Q8H [facility] Vancomycin HCl 0.75 gm/ Sodium (Chloride) 250 mls @ 166.667 mls/hr IV ONETIME ONE Stop: 05/22/18 09:29 Morphine Sulfate (Morphine) 2 mg IVPUSH Q3H PRN PRN Reason: Pain (severe 7-10) Oxycodone HCl (Oxycodone) 5 mg PO Q4H PRN PRN Reason: Pain (moderate 4-6) Last Admin: 05/21/18 19:45 Dose: 5 mg Temazepam (Restoril) 15 mg PO BEDTIME PRN PRN Reason: Insomnia Vancomycin HCl (Pharmacy To Dose - Vancomycin) 1 dose .XX ASDIRECTED [facility] Discontinued Medications Acetaminophen (Tylenol Extra Strength) 1,000 mg PO ONETIME ONE Stop: 05/20/18 20:24 Last Admin: 05/20/18 20:47 Dose: 1,000 mg Sodium Chloride (Normal Saline) 1,000 mls @ 999 mls/hr IV STAT ONE Stop: 05/20/18 21:56 Last Admin: 05/20/18 21:48 Dose: 999 mls/hr Vancomycin HCl 1 gm/ Sodium (Chloride) 250 mls @ 250 mls/hr IV ONETIME ONE Stop: 05/20/18 22:02 Last Admin: 05/21/18 00:11 Dose: Not Given Metronidazole 500 mg/ Premix 100 mls @ 100 mls/hr IV ONETIME ONE Stop: 05/20/18 22:35 Last Admin: 05/20/18 23:01 Dose: 100 mls/hr Piperacillin Sod/Tazobactam (Sod 3.375 gm/ Sodium Chloride) 50 mls @ 100 mls/ hr IV ONETIME ONE Stop: 05/20/18 22:05 Last Admin: 05/20/18 21:50 Dose: 100 mls/hr Vancomycin HCl 1.25 gm/ Sodium (Chloride) 250 mls @ 166.667 mls/hr IV Q8H [facility] Last Admin: 05/22/18 06:36 Dose: 166.667 mls/hr Vancomycin HCl 2 gm/ Sodium (Chloride) 500 mls @ 333.333 mls/hr IV Q8H [facility] Iopamidol (Isovue Multipack-370 (76%)) 100 ml IVPUSH ONETIME STA Stop: 05/20/18 22:13 Last Admin: 05/20/18 22:12 Dose: 100 ml Ketorolac Tromethamine (Toradol) 30 mg IVPUSH ONETIME ONE Stop: 05/20/18 20:57 Last Admin: 05/20/18 21:49 Dose: 30 mg - Exam General: Alert, Oriented, Cooperative, No Acute Distress Lungs: Clear to Auscultation, Normal Respiratory Effort Cardiovascular: Regular Rate, Regular Rhythm GI/Abdominal Exam: Normal Bowel Sounds, Soft, Non-Tender, No Mass Extremities: Normal Inspection, Normal Range of Motion, Non-Tender, No Pedal Edema Wound/Incisions: No Drainage, Erythema Improving, Other (Induration and erythema to R buttocks improve, Slight fluctuance now noted near distal intergluteal cleft. ) Neurological: No New Focal Deficit Psy/Mental Status: Alert, Normal Affect, Normal Mood - Problem List & Annotations (1) Sepsis SNOMED Code(s): 64104598 Code(s): A41.9 - SEPSIS, UNSPECIFIED ORGANISM Status: Resolved Current Visit: Yes Qualifiers: Sepsis type: sepsis due to unspecified organism Qualified Code(s): A41.9 - Sepsis, unspecified organism (2) Cellulitis and abscess of buttock SNOMED Code(s): 785196027 Code(s): L02.31 - CUTANEOUS ABSCESS OF BUTTOCK; L03.317 - CELLULITIS OF BUTTOCK Status: Acute Current Visit: Yes (3) Leukocytosis SNOMED Code(s): 084580848, 355408767 Code(s): D72.829 - ELEVATED WHITE BLOOD CELL COUNT, UNSPECIFIED Status: Acute Current Visit: Yes Qualifiers: Leukocytosis type: unspecified Qualified Code(s): D72.829 - Elevated white blood cell count, unspecified (4) Smoker SNOMED Code(s): 05319770 Code(s): F17.200 - NICOTINE DEPENDENCE, UNSPECIFIED, UNCOMPLICATED Status: Chronic Current Visit: Yes (5) Methamphetamine abuse SNOMED Code(s): 720648886 Code(s): F15.10 - OTHER STIMULANT ABUSE, UNCOMPLICATED Status: Acute Current Visit: Yes - Problem List Review Problem List Initiated/Reviewed/Updated: Yes - My Orders Last 24 Hours: My Active Orders 05/21/18 12:55 Intake and Output [RC] Q12H May Shower [RC] ASDIRECTED Oxygen Therapy [RC] PRN Up ad [place] [RC] ASDIRECTED VTE/DVT Education [RC] PER UNIT ROUTINE Vital Signs [RC] Q4H Resuscitation Status Routine 05/21/18 12:56 Antiembolic Devices [RC] PER UNIT ROUTINE Sequential Compression Device [OM.PC] Per Unit Routine 05/23/18 05:11 BASIC METABOLIC PANEL,BMP [CHEM] AM CBC WITH AUTO DIFF [HEME] AM 05/24/18 05:11 BASIC METABOLIC PANEL,BMP [CHEM] AM CBC WITH AUTO DIFF [HEME] AM - Plan Plan:: This 27 year old male admitted with cellulitis and possible abscess to R buttock. 1. Cellulitis with possible abscess to R buttocks: Dr Brown consulted.small are of fluctuance noted today. Dr Brown taking patient to OR for I&D today. NPO for now. Will monitor. BC negative x 1. Continue with Vancomycin and Zosyn at this time. I appreciated Dr Brown's assistance with this case. BP stable. Afebrile. Pain stable. Likely keep tonight after OR to monitor and help with dressing changes. VTE prophylaxis: SCDs Dispo: 1-2 days pending improvement. <Gabriele Funes - Last Filed: 05/22/18 11:10> - General Info Admission Dx/Problem (Free Text): I have examined the patient independently of Yamilet Zacarias CNP. I have discussed the case with her. I have reviewed and agree with the plan of care as outlined by her. Please see orders. Pending surgery for I & D. - Patient Data Vitals - Most Recent: Last Vital Signs Temp 37.1 C 05/22/18 08:00 Pulse 85 05/22/18 08:00 Resp 16 05/22/18 08:00 BP 115/68 05/22/18 08:00 Pulse Ox 94 L 05/22/18 08:00 I&O - Last 24 Hours: Intake & Output 05/21/18 05/22/18 05/22/18 22:59 06:59 14:59 Intake Total 3050 1550 250 Output Total 280 1700 Balance 2770 -150 250 Lab Results Last 24 Hours: Laboratory Results - last 24 hr 05/22/18 05/22/18 05/22/18 Range/Units 06:05 06:05 06:05 WBC 9.84 (4.0-11.0) K/uL RBC 4.17 L (4.50-5.90) M/uL Hgb 12.5 L (13.0-17.0) g/dL Hct 37.3 L (38.0-50.0) % MCV 89.4 (80.0-98.0) fL MCH 30.0 (27.0-32.0) pg MCHC 33.5 (31.0-37.0) g/dL RDW Std Deviation 44.0 (28.0-62.0) fl RDW Coeff of Kalin 13 (11.0-15.0) % Plt Count 155 (150-400) K/uL MPV 10.60 (7.40-12.00) fL Neut % (Auto) 78.5 (48.0-80.0) % Lymph % (Auto) 9.1 L (16.0-40.0) % Green % (Auto) 11.7 (0.0-15.0) % Eos % (Auto) 0.5 (0.0-7.0) % Baso % (Auto) 0.2 (0.0-1.5) % Neut # (Auto) 7.7 H (1.4-5.7) K/uL Lymph # (Auto) 0.9 (0.6-2.4) K/uL Green # (Auto) 1.2 H (0.0-0.8) K/uL Eos # (Auto) 0.1 (0.0-0.7) K/uL Baso # (Auto) 0.0 (0.0-0.1) K/uL Nucleated RBC % 0.0 /100WBC Nucleated RBCs # 0 K/uL Sodium 140 (136-148) mmol/L Potassium 3.7 (3.5-5.1) mmol/L Chloride 104 (98-107) mmol/L Carbon Dioxide 27.0 (21.0-32.0) mmol/L BUN 5 L (7.0-18.0) mg/dL Creatinine 0.7 L (0.8-1.3) mg/dL Est Cr Clr Drug Dosing 165.84 mL/min Estimated GFR (MDRD) > 60.0 ml/min Glucose 91 (74-106) mg/dL Calcium 7.9 L (8.5-10.1) mg/dL Vancomycin Trough 5.4 (5.0-10.0) ug/mL Carmelo Results Last 24 Hours: Microbiology 05/20/18 20:51 Aerobic Blood Culture - Preliminary Blood - Arm, Left NO GROWTH AFTER 1 DAY Anaerobic Blood Culture - Preliminary NO GROWTH AFTER 1 DAY 05/20/18 20:43 Aerobic Blood Culture - Preliminary Blood - Arm, Left NO GROWTH AFTER 1 DAY Anaerobic Blood Culture - Preliminary NO GROWTH AFTER 1 DAY Med Orders - Current: Current Medications Acetaminophen (Tylenol) 650 mg PO Q4H PRN PRN Reason: Fever Last Admin: 05/21/18 22:10 Dose: 650 mg Piperacillin Sod/Tazobactam (Sod 4.5 gm/ Sodium Chloride) 100 mls @ 100 mls/hr IV Q8H [facility] Last Admin: 05/22/18 05:35 Dose: 100 mls/hr Sodium Chloride (Normal Saline) 1,000 mls @ 125 mls/hr IV ASDIRECTED [facility] Last Admin: 05/22/18 02:06 Dose: 125 mls/hr Vancomycin HCl 2 gm/ Sodium (Chloride) 500 mls @ 333.333 mls/hr IV Q8H [facility] Lactated Ringer's (Ringers, Lactated) 1,000 mls @ 125 mls/hr IV ASDIRECTED [facility] Morphine Sulfate (Morphine) 2 mg IVPUSH Q3H PRN PRN Reason: Pain (severe 7-10) Last Admin: 05/22/18 09:45 Dose: 2 mg Nicotine (Habitrol) 14 mg TRDERM DAILY PRN PRN Reason: smoking cessation Oxycodone HCl (Oxycodone) 5 mg PO Q4H PRN PRN Reason: Pain (moderate 4-6) Last Admin: 05/21/18 19:45 Dose: 5 mg Temazepam (Restoril) 15 mg PO BEDTIME PRN PRN Reason: Insomnia Vancomycin HCl (Pharmacy To Dose - Vancomycin) 1 dose .XX ASDIRECTED [facility] Discontinued Medications Acetaminophen (Tylenol Extra Strength) 1,000 mg PO ONETIME ONE Stop: 05/20/18 20:24 Last Admin: 05/20/18 20:47 Dose: 1,000 mg Sodium Chloride (Normal Saline) 1,000 mls @ 999 mls/hr IV STAT ONE Stop: 05/20/18 21:56 Last Admin: 05/20/18 21:48 Dose: 999 mls/hr Vancomycin HCl 1 gm/ Sodium (Chloride) 250 mls @ 250 mls/hr IV ONETIME ONE Stop: 05/20/18 22:02 Last Admin: 05/21/18 00:11 Dose: Not Given Metronidazole 500 mg/ Premix 100 mls @ 100 mls/hr IV ONETIME ONE Stop: 05/20/18 22:35 Last Admin: 05/20/18 23:01 Dose: 100 mls/hr Piperacillin Sod/Tazobactam (Sod 3.375 gm/ Sodium Chloride) 50 mls @ 100 mls/ hr IV ONETIME ONE Stop: 05/20/18 22:05 Last Admin: 05/20/18 21:50 Dose: 100 mls/hr Vancomycin HCl 1.25 gm/ Sodium (Chloride) 250 mls @ 166.667 mls/hr IV Q8H [facility] Last Admin: 05/22/18 06:36 Dose: 166.667 mls/hr Vancomycin HCl 2 gm/ Sodium (Chloride) 500 mls @ 333.333 mls/hr IV Q8H [facility] Vancomycin HCl 0.75 gm/ Sodium (Chloride) 250 mls @ 166.667 mls/hr IV ONETIME ONE Stop: 05/22/18 09:29 Last Admin: 05/22/18 09:37 Dose: 166.667 mls/hr Iopamidol (Isovue Multipack-370 (76%)) 100 ml IVPUSH ONETIME STA Stop: 05/20/18 22:13 Last Admin: 05/20/18 22:12 Dose: 100 ml Ketorolac Tromethamine (Toradol) 30 mg IVPUSH ONETIME ONE Stop: 05/20/18 20:57 Last Admin: 05/20/18 21:49 Dose: 30 mg - My Orders Last 24 Hours: My Active Orders 05/22/18 16:00 Vancomycin 2 gm Sodium Chloride 0.9% [Normal Saline] 500 ml IV Q8H 05/22/18 Breakfast NPO Now [Nothing per Oral Now Diet] [DIET]
[2018-05-22] MEDS ORDERED: Nicotine 14 MG/24 Hr Patch TRDERM PRN (09:36)
[2018-05-22] MEDS ORDERED: Lactated Ringers 1,000 ML IV SCH (09:45)
--- NOTE | 2018-05-22 14:17 | PCM.PREANE ---
Preanesthetic Assessment - Anesthesia/Transfusion/Family Hx Anesthesia History: Prior Anesthesia Without Reaction Family History of Anesthesia Reaction: No Transfusion History: No Prior Transfusion(s) Intubation History: Unknown - Review of Systems General: No Symptoms Pulmonary: No Symptoms Cardiovascular: No Symptoms Gastrointestinal: No Symptoms Neurological: No Symptoms Other: Reports: None - Physical Assessment O2 Sat by Pulse Oximetry: 92 Respiratory Rate: 16 Temperature: 100.3 C Vital Signs: Last Vital Signs Temp 37.3 C 05/22/18 12:00 Pulse 82 05/22/18 12:00 Resp 16 05/22/18 12:00 BP 104/51 L 05/22/18 12:00 Pulse Ox 92 L 05/22/18 12:00 Height: 1.8 m Weight: 103.011 kg ASA Class: 2 Mental Status: Alert & Oriented x3 Airway Class: Mallampati = 2 Dentition: Reports: Normal Dentition Thyro-Mental Finger Breadths: 3 Mouth Opening Finger Breadths: 3 ROM/Head Extension: Full Lungs: Clear to Auscultation, Normal Respiratory Effort Cardiovascular: Regular Rate, Regular Rhythm - Lab Values: Laboratory Last Values WBC 9.84 K/uL (4.0-11.0) 05/22/18 06:05 RBC 4.17 M/uL (4.50-5.90) L 05/22/18 06:05 Hgb 12.5 g/dL (13.0-17.0) L 05/22/18 06:05 Hct 37.3 % (38.0-50.0) L 05/22/18 06:05 MCV 89.4 fL (80.0-98.0) 05/22/18 06:05 MCH 30.0 pg (27.0-32.0) 05/22/18 06:05 MCHC 33.5 g/dL (31.0-37.0) 05/22/18 06:05 RDW Std Deviation 44.0 fl (28.0-62.0) 05/22/18 06:05 RDW Coeff of Kalin 13 % (11.0-15.0) 05/22/18 06:05 Plt Count 155 K/uL (150-400) 05/22/18 06:05 MPV 10.60 fL (7.40-12.00) 05/22/18 06:05 Neut % (Auto) 78.5 % (48.0-80.0) 05/22/18 06:05 Lymph % (Auto) 9.1 % (16.0-40.0) L 05/22/18 06:05 [place] % (Auto) 11.7 % (0.0-15.0) 05/22/18 06:05 Eos % (Auto) 0.5 % (0.0-7.0) 05/22/18 06:05 Baso % (Auto) 0.2 % (0.0-1.5) 05/22/18 06:05 Neut # (Auto) 7.7 K/uL (1.4-5.7) H 05/22/18 06:05 Lymph # (Auto) 0.9 K/uL (0.6-2.4) 05/22/18 06:05 [place] # (Auto) 1.2 K/uL (0.0-0.8) H 05/22/18 06:05 Eos # (Auto) 0.1 K/uL (0.0-0.7) 05/22/18 06:05 Baso # (Auto) 0.0 K/uL (0.0-0.1) 05/22/18 06:05 Nucleated RBC % 0.0 /100WBC 05/22/18 06:05 Nucleated RBCs # 0 K/uL 05/22/18 06:05 ESR 58 mm/hr (0-14) H 05/21/18 05:28 Lactate 0.8 mmol/L (0.20-2.00) 05/20/18 20:51 Sodium 140 mmol/L (136-148) 05/22/18 06:05 Potassium 3.7 mmol/L (3.5-5.1) 05/22/18 06:05 Chloride 104 mmol/L (98-107) 05/22/18 06:05 Carbon Dioxide 27.0 mmol/L (21.0-32.0) 05/22/18 06:05 BUN 5 mg/dL (7.0-18.0) L 05/22/18 06:05 Creatinine 0.7 mg/dL (0.8-1.3) L 05/22/18 06:05 Est Cr Clr Drug Dosing 165.84 mL/min 05/22/18 06:05 Estimated GFR (MDRD) > 60.0 ml/min 05/22/18 06:05 Glucose 91 mg/dL (74-106) 05/22/18 06:05 Calcium 7.9 mg/dL (8.5-10.1) L 05/22/18 06:05 Total Bilirubin 0.7 mg/dL (0.2-1.0) 05/20/18 20:51 AST 48 IU/L (15-37) H 05/20/18 20:51 ALT 38 IU/L (14-63) 05/20/18 20:51 Alkaline Phosphatase 85 U/L (46-116) 05/20/18 20:51 C-Reactive Protein 23.40 mg/dL (0.00-0.90) H 05/21/18 05:28 Total Protein 7.2 g/dL (6.4-8.2) 05/20/18 20:51 Albumin 2.9 g/dL (3.4-5.0) L 05/20/18 20:51 Globulin 4.3 g/dL (2.6-4.0) H 05/20/18 20:51 Albumin/Globulin Ratio 0.7 (0.9-1.6) L 05/20/18 20:51 Vancomycin Trough 5.4 ug/mL (5.0-10.0) 05/22/18 06:05 - Allergies Allergies/Adverse Reactions: Allergies Allergy/AdvReac Type Severity Reaction Status Date / Time No Known Allergies Allergy Verified 05/20/18 20:07 - Blood Blood Available: No - Anesthesia Plan Pre-Op Medication Ordered: None - Acknowledgements Anesthesia Type Planned: General Anesthesia Pt an Appropriate Candidate for the Planned Anesthesia: Yes Alternatives and Risks of Anesthesia Discussed w Pt/Guardian: Yes Pt/Guardian Understands and Agrees with Anesthesia Plan: Yes PreAnesthesia Questionnaire - Past Health History Medical/Surgical History: Denies Medical/Surgical History Cardiovascular History: Reports: None Respiratory History: Reports: None Gastrointestinal History: Reports: None Psychiatric History: Reports: Addiction (on/off methamphetamine addiction) Endocrine/Metabolic History: Reports: Obesity/BMI 30+ - Infectious Disease History Infectious Disease History: Reports: Chicken Pox - Past Surgical History Cardiovascular Surgical History: Reports: None GI Surgical History: Reports: None - SUBSTANCE USE Smoking Status *Q: Current Every Day Smoker Tobacco Use Within Last Twelve Months: Cigarettes Number of Drinks Per Day: 1 Recreational Drug Use History: Yes Recreational Drug Type: Reports: Marijuana/Hashish, Methamphetamine (uses weekly and smokes. Hx of injection.) - HOME MEDS Home Medications: Home Meds . [No Known Home Meds] 05/20/18 [History] - CURRENT (IN HOUSE) MEDS Current Meds: Current Medications Acetaminophen (Tylenol) 650 mg PO Q4H PRN PRN Reason: Fever Last Admin: 05/21/18 22:10 Dose: 650 mg Piperacillin Sod/Tazobactam (Sod 4.5 gm/ Sodium Chloride) 100 mls @ 100 mls/hr IV Q8H [facility] Last Admin: 05/22/18 13:30 Dose: 100 mls/hr Sodium Chloride (Normal Saline) 1,000 mls @ 125 mls/hr IV ASDIRECTED [facility] Last Admin: 05/22/18 02:06 Dose: 125 mls/hr Vancomycin HCl 2 gm/ Sodium (Chloride) 500 mls @ 333.333 mls/hr IV Q8H [facility] Lactated Ringer's (Ringers, Lactated) 1,000 mls @ 125 mls/hr IV ASDIRECTED [facility] Morphine Sulfate (Morphine) 2 mg IVPUSH Q3H PRN PRN Reason: Pain (severe 7-10) Last Admin: 05/22/18 09:45 Dose: 2 mg Nicotine (Habitrol) 14 mg TRDERM DAILY PRN PRN Reason: smoking cessation Oxycodone HCl (Oxycodone) 5 mg PO Q4H PRN PRN Reason: Pain (moderate 4-6) Last Admin: 05/21/18 19:45 Dose: 5 mg Temazepam (Restoril) 15 mg PO BEDTIME PRN PRN Reason: Insomnia Vancomycin HCl (Pharmacy To Dose - Vancomycin) 1 dose .XX ASDIRECTED [facility] Discontinued Medications Acetaminophen (Tylenol Extra Strength) 1,000 mg PO ONETIME ONE Stop: 05/20/18 20:24 Last Admin: 05/20/18 20:47 Dose: 1,000 mg Sodium Chloride (Normal Saline) 1,000 mls @ 999 mls/hr IV STAT ONE Stop: 05/20/18 21:56 Last Admin: 05/20/18 21:48 Dose: 999 mls/hr Vancomycin HCl 1 gm/ Sodium (Chloride) 250 mls @ 250 mls/hr IV ONETIME ONE Stop: 05/20/18 22:02 Last Admin: 05/21/18 00:11 Dose: Not Given Metronidazole 500 mg/ Premix 100 mls @ 100 mls/hr IV ONETIME ONE Stop: 05/20/18 22:35 Last Admin: 05/20/18 23:01 Dose: 100 mls/hr Piperacillin Sod/Tazobactam (Sod 3.375 gm/ Sodium Chloride) 50 mls @ 100 mls/ hr IV ONETIME ONE Stop: 05/20/18 22:05 Last Admin: 05/20/18 21:50 Dose: 100 mls/hr Vancomycin HCl 1.25 gm/ Sodium (Chloride) 250 mls @ 166.667 mls/hr IV Q8H [facility] Last Admin: 05/22/18 06:36 Dose: 166.667 mls/hr Vancomycin HCl 2 gm/ Sodium (Chloride) 500 mls @ 333.333 mls/hr IV Q8H [facility] Vancomycin HCl 0.75 gm/ Sodium (Chloride) 250 mls @ 166.667 mls/hr IV ONETIME ONE Stop: 05/22/18 09:29 Last Admin: 05/22/18 09:37 Dose: 166.667 mls/hr Iopamidol (Isovue Multipack-370 (76%)) 100 ml IVPUSH ONETIME STA Stop: 05/20/18 22:13 Last Admin: 05/20/18 22:12 Dose: 100 ml Ketorolac Tromethamine (Toradol) 30 mg IVPUSH ONETIME ONE Stop: 05/20/18 20:57 Last Admin: 05/20/18 21:49 Dose: 30 mg
[2018-05-22] MEDS ORDERED: Lidocaine 2% 5 ML SDV ONE (14:18)
[2018-05-22] MEDS ORDERED: fentaNYL 100 MCG/2 ML SDV ONE ×2 (14:18→14:38)
[2018-05-22] MEDS ORDERED: Midazolam 1 MG/ML 2 ML SDV ONE (14:18)
[2018-05-22] MEDS ORDERED: Propofol 200 MG/20 ML SDV ONE ×2 (14:18→14:39)
[2018-05-22] MEDS ORDERED: Bupivacaine 25%/EPINEPHrine/PF 0 ML ONE (14:29)
[2018-05-22] MEDS ORDERED: Sodium Chloride 0.9% 20 ML ONE (14:32)
[2018-05-22] MEDS ORDERED: Lidocaine 1% with EPINEPHrine 1:100,000 20 ML MDV ONE (14:34)
--- NOTE | 2018-05-22 15:00 | PCM.OPNOTE ---
- General Post-Op/Procedure Note Date of Surgery/Procedure: 05/22/18 Operative Procedure(s): incision and drainage, exploration, r gluteal abscess Findings: large amt of foul smelling purulent necrosis, 200 cc on r gluteal; [id number] Pre Op Diagnosis: r gluteal infection Post-Op Diagnosis: Same Anesthesia Technique: Moderate Sedation Primary Surgeon: Sebastian Brown Pathology: sent Complications: None Condition: Stable Free Text/Narrative:: Intake & Output 05/21/18 05/22/18 05/22/18 22:59 06:59 14:59 Intake Total 3050 1550 250 Output Total 280 1700 Balance 2770 -150 250
--- NOTE | 2018-05-22 15:05 | PCM.SN ---
- Free Text/Narrative Note: Pt doing well in postop; comfortable; R gluteal infection, 200Cc+ foul smelling necrosis drained; wound packed with 1/2 inch iodoform gauze; pt can be discharged home from surg stand point; keep wound clean and dry; drsg change w packing 1/2 inch iodoform gauze every other day till wound healed; po abx/pain script written; warm sitz bath if stool gets into wound when having BM; avoid sitting on wound; fu in office 1 - 2 wks; remind pt to fill abx script to avoid further infection; thanks for the consult and care of this nice gentleman.
--- NOTE | 2018-05-22 15:28 | PCM.POSTAN ---
POST ANESTHESIA ASSESSMENT - MENTAL STATUS Mental Status: Alert, Oriented - RESPIRATORY Respiratory Status: Respiratory Rate WNL, Airway Patent, O2 Saturation Stable - CARDIOVASCULAR CV Status: Pulse Rate WNL, Blood Pressure Stable - GASTROINTESTINAL GI Status: No Symptoms - PAIN Pain Score: 1 - POST OP HYDRATION Hydration Status: Adequate & Stable
[2018-05-22] MEDS: Vancomycin 2 GM in Sodium Chloride 0.9% 500 ML IV SCH ×2 (16:35→23:19)
--- NOTE | 2018-05-22 16:40 | PCM48HPAN ---
Post Anesthesia Note - EVALUATION WITHIN 48HRS OF ANESTHETIC Vital Signs in Normal Range: Yes Patient Participated in Evaluation: Yes Respiratory Function Stable: Yes Airway Patent: Yes Cardiovascular Function Stable: Yes Hydration Status Stable: Yes Pain Control Satisfactory: Yes Nausea and Vomiting Control Satisfactory: Yes Mental Status Recovered: Yes Resp Rate: 16 - COMMENTS/OBSERVATIONS Free Text/Narrative:: No apparent anesthesia complications
--- NOTE | 2018-05-22 22:03 | OR ---
SURGEON: Sebastian Brown MD DATE OF PROCEDURE: 05/22/2018 PREOPERATIVE DIAGNOSIS: Right gluteal abscess. POSTOPERATIVE DIAGNOSIS: Right gluteal abscess. PROCEDURE PERFORMED: Incision and drainage and exploration. PRIMARY SURGEON: Sebastian Brown MD COMPLICATIONS: None. FINDINGS: Large amount of close to more than 200 mL of foul-smelling purulent necrosis from the right gluteal infection. PROCEDURE IN DETAIL: The patient was taken to operating room and placed in a supine position upon mild general sedation. The patient was repositioned in right decubitus position with right side down and left side up. The patient's right gluteus was prepped and draped in a sterile fashion. Time-out has been called, patient identified, procedure identified, procedure then started. It is in the medial aspect of the right gluteus quite far away from the anus. Area was infiltrated with 1% lidocaine with epi, and using an 11 blade, incision was made which resulted in large amount of purulent foul-smelling necrosis, over 200 mL plus. Incision was then explored by using surgeon's finger, bluntly dissected and dislodged all the loculations. Area was then copiously irrigated and packed with 0.5-inch iodoform gauze and appropriate dressing. Patient was then awakened, repositioned in supine position and transferred to recovery room in hemodynamically stable condition. The patient tolerated procedure well. There were no intraoperative complication. Gram stain and C and S have been sent. Dr. Brown was present through the whole procedure. ELLIOT / ANATOLY /[id number]
[2018-05-23] MEDS: Piperacillin/Tazobactam 4.5 GM in Sodium Chloride 0.9% 100 ML IV SCH (05:43)
[2018-05-23 08:22] LABS: CHLORIDE,CL 105 mmol/L (98-107); SODIUM,NA 140 mmol/L (136-148)
--- NOTE | 2018-05-23 08:36 | PCM.DCSUM1 ---
<Ladan Trevino - Last Filed: 05/23/18 09:07> Discharge Summary - Hospital Course HPI Initial Comments: Admission Date: 05/21/18 Discharge Date: 05/23/18 Admission Diagnosis: 1. Cellulitis with possible abscess of right buttock Discharge Diagnosis: 1.Cellulitis with abscess of right buttock s/p I&D Procedures: I & D Consults: Dr. Brown, general surgery Hospital Course: The patient is a 27 year old male with history of drug use who presented to the ER with fever/chills and 1 week history worsening right buttock pain and redness. In the ER, he had a fever of 102.8 and work up found leukocytosis, CT ab/pelvis showed skin thickening, fat stranding of right buttock consistent with cellulitis with no well defined/drainable abscess. Dr. Brown was consulted in the ER. Patient was admitted to medical surgical floor for observation. He was started on IV Vancomycin and Zosyn. He white count resolved and blood cultures were negative. He was taken to the OR by Dr. Brown for I &D, and Dr. Brown drained 200+ cc of fluid out of the wound. He was cleared for discharge from a surgical standpoint with wound care instructions and prescriptions. Dr. Brown recommended packing the wound with 1/2 inch iodoform gauze every other day until healed and keeping the wound dry/clean. Patient was taught how to change the dressing and pack the wound. Dr. Brown would like him to follow with him as an outpatient for wound check. Dr. Brown wrote prescriptions for clindamycin and Percocet. By day of discharge, the patient's white count was normal, he was no longer febrile, he was tolerating an oral diet, and his pain had improved. By day of discharge the patient reported he was ready to go home. Disposition: Home Discharge Condition: vitals stable, tolerating oral diet, ambulating without difficulty, symptom improvement. Discharge Instructions: regular diet as tolerated, activity as tolerated, take medications as prescribed. Do not combine alcohol or drugs with pain medication. Pack wound with 1/2 iodoform gauze every other day until healed. Keep area clean and dry. Symptoms to report to physician include fever/chills, chest pain, shortness of breath, abdominal pain, nausea/vomiting, erythema, drainage/discharge, or not improving as expected. Discharge Medications: 1. Clindamycin 300 mg po tid x 10 days 2. Percocet 5/325 mg po q6 prn pain #25 Follow-up: 1. PCP- Dr. Taylor on 06/03/18 2. General surgery- Dr. Brown in 1-2 weeks Diagnosis: Stroke: No - Discharge Data Discharge Date: 05/23/18 Discharge Disposition: Home, Self-Care 01 Condition: Stable - Patient Summary/Data Operative Procedure(s) Performed: incision and drainage, exploration, r gluteal abscess - Patient Instructions Diet: Usual Diet as Tolerated Activity: As Tolerated Showering/Bathing: May Shower Wound/Incision Care: Keep Operative Site/Wound Site Clean and Dry Notify Provider of: Fever, Increased Pain, Swelling and Redness, Drainage, Nausea and/or Vomiting Other/Special Instructions: Additional symptoms include chest pain, shortness of breath, or abdominal pain. Dr. Brown has hand written you precriptions. Clindamycin is the antibiotics, take full course and Percocet for pain, take as needed. Avoid alcohol and drug use. Do not take pain medications with alcohol or drugs. - Discharge Plan *PRESCRIPTION DRUG MONITORING PROGRAM REVIEWED*: No *COPY OF PRESCRIPTION DRUG MONITORING REPORT IN PATIENT AI: No Home Medications: Home Meds . [No Known Home Meds] 05/20/18 [History] Patient Handouts: Acetaminophen; Oxycodone tablets, Clindamycin capsules, Cellulitis, Adult, [id number], Incision and Drainage, Care After Referrals: [facility] [Outside] Sebastian Brown MD [Physician] - (Call to make an appointment to follow-up in 1-2 weeks) Vance Taylor MD [Ordering Only Provider] - 06/03/18 9:30 am (Arrive 15 minutes early with a photo ID and an insurance card) - Discharge Summary/Plan Comment DC Time >30 min.: No - Patient Data Vitals - Most Recent: Last Vital Signs Temp 98.7 F 05/23/18 04:00 Pulse 72 05/23/18 04:00 Resp 15 05/23/18 04:00 BP 104/53 L 05/23/18 04:00 Pulse Ox 95 05/23/18 04:00 Weight - Most Recent: 103.011 kg I&O - Last 24 hours: Intake & Output 05/22/18 05/23/18 05/23/18 22:59 06:59 14:59 Intake Total 1350 2998 Output Total 2100 2210 Balance -750 788 Lab Results - Last 24 hrs: Laboratory Results - last 24 hr 05/23/18 05/23/18 Range/Units 07:52 08:02 Sodium 140 (136-148) mmol/L Potassium 3.8 (3.5-5.1) mmol/L Chloride 105 (98-107) mmol/L Carbon Dioxide 26.4 (21.0-32.0) mmol/L BUN 4 L (7.0-18.0) mg/dL Creatinine 0.8 (0.8-1.3) mg/dL Est Cr Clr Drug Dosing 145.11 mL/min Estimated GFR (MDRD) > 60.0 ml/min Glucose 96 (74-106) mg/dL Calcium 8.5 (8.5-10.1) mg/dL Vancomycin Trough 8.7 (5.0-10.0) ug/mL CINDY Results - Last 24 hrs: Microbiology 05/20/18 20:51 Aerobic Blood Culture - Preliminary Blood - Arm, Left NO GROWTH AFTER 2 DAYS Anaerobic Blood Culture - Preliminary NO GROWTH AFTER 2 DAYS 05/20/18 20:43 Aerobic Blood Culture - Preliminary Blood - Arm, Left NO GROWTH AFTER 2 DAYS Anaerobic Blood Culture - Preliminary NO GROWTH AFTER 2 DAYS 05/22/18 14:43 Gram Stain - Preliminary Perirectal Med Orders - Current: Current Medications Acetaminophen (Tylenol) 650 mg PO Q4H PRN PRN Reason: Fever Last Admin: 05/21/18 22:10 Dose: 650 mg Piperacillin Sod/Tazobactam (Sod 4.5 gm/ Sodium Chloride) 100 mls @ 100 mls/hr IV Q8H [facility] Last Admin: 05/23/18 05:43 Dose: 100 mls/hr Sodium Chloride (Normal Saline) 1,000 mls @ 125 mls/hr IV ASDIRECTED [facility] Last Admin: 05/22/18 02:06 Dose: 125 mls/hr Vancomycin HCl 2 gm/ Sodium (Chloride) 500 mls @ 333.333 mls/hr IV Q8H [facility] Last Admin: 05/22/18 23:19 Dose: 333.333 mls/hr Lactated Ringer's (Ringers, Lactated) 1,000 mls @ 125 mls/hr IV ASDIRECTED [facility] Morphine Sulfate (Morphine) 2 mg IVPUSH Q3H PRN PRN Reason: Pain (severe 7-10) Last Admin: 05/22/18 09:45 Dose: 2 mg Nicotine (Habitrol) 14 mg TRDERM DAILY PRN PRN Reason: smoking cessation Oxycodone HCl (Oxycodone) 5 mg PO Q4H PRN PRN Reason: Pain (moderate 4-6) Last Admin: 05/21/18 19:45 Dose: 5 mg Temazepam (Restoril) 15 mg PO BEDTIME PRN PRN Reason: Insomnia Vancomycin HCl (Pharmacy To Dose - Vancomycin) 1 dose .XX ASDIRECTED [facility] Discontinued Medications Acetaminophen (Tylenol Extra Strength) 1,000 mg PO ONETIME ONE Stop: 05/20/18 20:24 Last Admin: 05/20/18 20:47 Dose: 1,000 mg Fentanyl (Sublimaze) Confirm Administered Dose 100 mcg .ROUTE .STK-MED ONE Stop: 05/22/18 14:19 Fentanyl (Sublimaze) Confirm Administered Dose 100 mcg .ROUTE .STK-MED ONE Stop: 05/22/18 14:39 Sodium Chloride (Normal Saline) 1,000 mls @ 999 mls/hr IV STAT ONE Stop: 05/20/18 21:56 Last Admin: 05/20/18 21:48 Dose: 999 mls/hr Vancomycin HCl 1 gm/ Sodium (Chloride) 250 mls @ 250 mls/hr IV ONETIME ONE Stop: 05/20/18 22:02 Last Admin: 05/21/18 00:11 Dose: Not Given Metronidazole 500 mg/ Premix 100 mls @ 100 mls/hr IV ONETIME ONE Stop: 05/20/18 22:35 Last Admin: 05/20/18 23:01 Dose: 100 mls/hr Piperacillin Sod/Tazobactam (Sod 3.375 gm/ Sodium Chloride) 50 mls @ 100 mls/ hr IV ONETIME ONE Stop: 05/20/18 22:05 Last Admin: 05/20/18 21:50 Dose: 100 mls/hr Vancomycin HCl 1.25 gm/ Sodium (Chloride) 250 mls @ 166.667 mls/hr IV Q8H [facility] Last Admin: 05/22/18 06:36 Dose: 166.667 mls/hr Vancomycin HCl 2 gm/ Sodium (Chloride) 500 mls @ 333.333 mls/hr IV Q8H [facility] Vancomycin HCl 0.75 gm/ Sodium (Chloride) 250 mls @ 166.667 mls/hr IV ONETIME ONE Stop: 05/22/18 09:29 Last Admin: 05/22/18 09:37 Dose: 166.667 mls/hr Bupivacaine HCl/Epinephrine Bitart (Sensorc Mpf 0.25%-Epi 1:[id number]) Confirm Administered Dose 30 mls @ as directed .ROUTE .STK-MED ONE Stop: 05/22/18 14:30 Sodium Chloride (Normal Saline) Confirm Administered Dose 20 mls @ as directed .ROUTE .STK-MED ONE Stop: 05/22/18 14:33 Iopamidol (Isovue Multipack-370 (76%)) 100 ml IVPUSH ONETIME STA Stop: 05/20/18 22:13 Last Admin: 05/20/18 22:12 Dose: 100 ml Ketorolac Tromethamine (Toradol) 30 mg IVPUSH ONETIME ONE Stop: 05/20/18 20:57 Last Admin: 05/20/18 21:49 Dose: 30 mg Lidocaine (Xylocaine-Mpf 2%) Confirm Administered Dose 5 ml .ROUTE .STK-MED ONE Stop: 05/22/18 14:19 Lidocaine/Epinephrine (Xylocaine 1% With Epinephrine 1:100,000) Confirm Administered Dose 20 ml .ROUTE .STK-MED ONE Stop: 05/22/18 14:35 Midazolam HCl (Versed 1 Mg/Ml) Confirm Administered Dose 2 mg .ROUTE .STK-MED ONE Stop: 05/22/18 14:19 Propofol (Diprivan 20 Ml) Confirm Administered Dose 200 mg .ROUTE .STK-MED ONE Stop: 05/22/18 14:19 Propofol (Diprivan 20 Ml) Confirm Administered Dose 200 mg .ROUTE .STK-MED ONE Stop: 05/22/18 14:40 <Gabriele Funes - Last Filed: 05/23/18 10:43> Discharge Summary - Hospital Course HPI Initial Comments: I have examined the patient independently of Ladan Trevino DO, emergency medical technician. I have discussed the case with her. I have reviewed and agree with the plan of care as outlined by her. Please see orders. - Patient Data Vitals - Most Recent: Last Vital Signs Temp 37.0 C 05/23/18 08:00 Pulse 82 05/23/18 08:00 Resp 16 05/23/18 08:00 BP 120/77 05/23/18 08:00 Pulse Ox 96 05/23/18 08:00 I&O - Last 24 hours: Intake & Output 05/22/18 05/23/18 05/23/18 22:59 06:59 14:59 Intake Total 1350 2998 500 Output Total 2100 2210 Balance -750 788 500 Lab Results - Last 24 hrs: Laboratory Results - last 24 hr 05/23/18 05/23/18 05/23/18 Range/Units 07:52 07:52 08:02 WBC 5.42 (4.0-11.0) K/uL RBC 4.42 L (4.50-5.90) M/uL Hgb 12.9 L (13.0-17.0) g/dL Hct 39.0 (38.0-50.0) % MCV 88.2 (80.0-98.0) fL MCH 29.2 (27.0-32.0) pg MCHC 33.1 (31.0-37.0) g/dL RDW Std Deviation 42.8 (28.0-62.0) fl RDW Coeff of Kalin 13 (11.0-15.0) % Plt Count 181 (150-400) K/uL MPV 10.40 (7.40-12.00) fL Add Manual Diff YES Neutrophils % (Manual) 67 (48.0-80.0) % Lymphocytes % (Manual) 20 (16.0-40.0) % Monocytes % (Manual) 10 (0.0-15.0) % Eosinophils % (Manual) 2 (0.0-7.0) % Basophils % (Manual) 1 (0.0-1.5) % Nucleated RBC % 0.0 /100WBC Absolute Seg Neuts 3.6 (1.4-5.7) Lymphocytes # (Manual) 1.1 (0.6-2.4) Monocytes # (Manual) 0.5 (0.0-0.8) Eosinophils # (Manual) 0.1 (0.0-0.7) Basophils # (Manual) 0.1 (0.0-0.1) Nucleated RBCs # 0 K/uL Sodium 140 (136-148) mmol/L Potassium 3.8 (3.5-5.1) mmol/L Chloride 105 (98-107) mmol/L Carbon Dioxide 26.4 (21.0-32.0) mmol/L BUN 4 L (7.0-18.0) mg/dL Creatinine 0.8 (0.8-1.3) mg/dL Est Cr Clr Drug Dosing 145.11 mL/min Estimated GFR (MDRD) > 60.0 ml/min Glucose 96 (74-106) mg/dL Calcium 8.5 (8.5-10.1) mg/dL Vancomycin Trough 8.7 (5.0-10.0) ug/mL CINDY Results - Last 24 hrs: Microbiology 05/20/18 20:51 Aerobic Blood Culture - Preliminary Blood - Arm, Left NO GROWTH AFTER 2 DAYS Anaerobic Blood Culture - Preliminary NO GROWTH AFTER 2 DAYS 05/20/18 20:43 Aerobic Blood Culture - Preliminary Blood - Arm, Left NO GROWTH AFTER 2 DAYS Anaerobic Blood Culture - Preliminary NO GROWTH AFTER 2 DAYS 05/22/18 14:43 Gram Stain - Preliminary Perirectal Med Orders - Current: Current Medications Acetaminophen (Tylenol) 650 mg PO Q4H PRN PRN Reason: Fever Last Admin: 05/21/18 22:10 Dose: 650 mg Piperacillin Sod/Tazobactam (Sod 4.5 gm/ Sodium Chloride) 100 mls @ 100 mls/hr IV Q8H [facility] Last Admin: 05/23/18 05:43 Dose: 100 mls/hr Sodium Chloride (Normal Saline) 1,000 mls @ 125 mls/hr IV ASDIRECTED [facility] Last Admin: 05/22/18 02:06 Dose: 125 mls/hr Lactated Ringer's (Ringers, Lactated) 1,000 mls @ 125 mls/hr IV ASDIRECTED [facility] Vancomycin HCl 2 gm/Vancomycin HCl 250 mg/ Sodium Chloride 500 mls @ 250 mls/ hr IV Q8H [facility] Last Admin: 05/23/18 09:47 Dose: 250 mls/hr Morphine Sulfate (Morphine) 2 mg IVPUSH Q3H PRN PRN Reason: Pain (severe 7-10) Last Admin: 05/22/18 09:45 Dose: 2 mg Nicotine (Habitrol) 14 mg TRDERM DAILY PRN PRN Reason: smoking cessation Oxycodone HCl (Oxycodone) 5 mg PO Q4H PRN PRN Reason: Pain (moderate 4-6) Last Admin: 05/21/18 19:45 Dose: 5 mg Temazepam (Restoril) 15 mg PO BEDTIME PRN PRN Reason: Insomnia Vancomycin HCl (Pharmacy To Dose - Vancomycin) 1 dose .XX ASDIRECTED [facility] Discontinued Medications Acetaminophen (Tylenol Extra Strength) 1,000 mg PO ONETIME ONE Stop: 05/20/18 20:24 Last Admin: 05/20/18 20:47 Dose: 1,000 mg Fentanyl (Sublimaze) Confirm Administered Dose 100 mcg .ROUTE .STK-MED ONE Stop: 05/22/18 14:19 Fentanyl (Sublimaze) Confirm Administered Dose 100 mcg .ROUTE .STK-MED ONE Stop: 05/22/18 14:39 Sodium Chloride (Normal Saline) 1,000 mls @ 999 mls/hr IV STAT ONE Stop: 05/20/18 21:56 Last Admin: 05/20/18 21:48 Dose: 999 mls/hr Vancomycin HCl 1 gm/ Sodium (Chloride) 250 mls @ 250 mls/hr IV ONETIME ONE Stop: 05/20/18 22:02 Last Admin: 05/21/18 00:11 Dose: Not Given Metronidazole 500 mg/ Premix 100 mls @ 100 mls/hr IV ONETIME ONE Stop: 05/20/18 22:35 Last Admin: 05/20/18 23:01 Dose: 100 mls/hr Piperacillin Sod/Tazobactam (Sod 3.375 gm/ Sodium Chloride) 50 mls @ 100 mls/ hr IV ONETIME ONE Stop: 05/20/18 22:05 Last Admin: 05/20/18 21:50 Dose: 100 mls/hr Vancomycin HCl 1.25 gm/ Sodium (Chloride) 250 mls @ 166.667 mls/hr IV Q8H [facility] Last Admin: 05/22/18 06:36 Dose: 166.667 mls/hr Vancomycin HCl 2 gm/ Sodium (Chloride) 500 mls @ 333.333 mls/hr IV Q8H [facility] Vancomycin HCl 2 gm/ Sodium (Chloride) 500 mls @ 333.333 mls/hr IV Q8H [facility] Last Admin: 05/23/18 10:30 Dose: Not Given Vancomycin HCl 0.75 gm/ Sodium (Chloride) 250 mls @ 166.667 mls/hr IV ONETIME ONE Stop: 05/22/18 09:29 Last Admin: 05/22/18 09:37 Dose: 166.667 mls/hr Bupivacaine HCl/Epinephrine Bitart (Sensorc Mpf 0.25%-Epi 1:[id number]) Confirm Administered Dose 30 mls @ as directed .ROUTE .STK-MED ONE Stop: 05/22/18 14:30 Sodium Chloride (Normal Saline) Confirm Administered Dose 20 mls @ as directed .ROUTE .STK-MED ONE Stop: 05/22/18 14:33 Vancomycin HCl 2.25 gm/ Sodium (Chloride) 500 mls @ 250 mls/hr IV Q8H [facility] Iopamidol (Isovue Multipack-370 (76%)) 100 ml IVPUSH ONETIME STA Stop: 05/20/18 22:13 Last Admin: 05/20/18 22:12 Dose: 100 ml Ketorolac Tromethamine (Toradol) 30 mg IVPUSH ONETIME ONE Stop: 05/20/18 20:57 Last Admin: 05/20/18 21:49 Dose: 30 mg Lidocaine (Xylocaine-Mpf 2%) Confirm Administered Dose 5 ml .ROUTE .STK-MED ONE Stop: 05/22/18 14:19 Lidocaine/Epinephrine (Xylocaine 1% With Epinephrine 1:100,000) Confirm Administered Dose 20 ml .ROUTE .STK-MED ONE Stop: 05/22/18 14:35 Midazolam HCl (Versed 1 Mg/Ml) Confirm Administered Dose 2 mg .ROUTE .STK-MED ONE Stop: 05/22/18 14:19 Propofol (Diprivan 20 Ml) Confirm Administered Dose 200 mg .ROUTE .STK-MED ONE Stop: 05/22/18 14:19 Propofol (Diprivan 20 Ml) Confirm Administered Dose 200 mg .ROUTE .STK-MED ONE Stop: 05/22/18 14:40
[2018-05-23] MEDS ORDERED: SODIUM CHLORIDE 0.9% IV SCH (09:30)
[2018-05-23] MEDS ORDERED: VANCOMYCIN IV SCH (09:30)
[2018-05-23] MEDS ORDERED: Vancomycin 2.25 GM in Sodium Chloride 0.9% 500 ML IV SCH (09:30)
[2018-05-23] MEDS: Vancomycin 2 GM in Sodium Chloride 0.9% 500 ML IV SCH (10:30)
[2018-05-23] MEDS: oxyCODONE 5 MG Tab PO PRN (11:46)
== END 2018-05-23 12:50 | disposition home or self-care (01) ==
LOC: MW.ED 19:20 → MW.MS 22:12
PROVIDERS: ADMIT Internal Medicine; ATTEND Internal Medicine
DX: L02.31 Cutaneous abscess of buttock (principal); L03.317 Cellulitis of buttock; A41.9 Sepsis, unspecified organism; F17.200 Nicotine dependence, unspecified, uncomplicated; F15.10 Other stimulant abuse, uncomplicated
CPT/HCPCS: 10061; 36415; 72193; 80048; 80053; 80202; 83605; 85025; 85652; 86140; 87040; 87070; 87075; 87205; 96361; 96365; 96367; 96375; 99284; A9270; J1885; J2001; J2250; J2270; J2543; J2704; J3010; J3370; J3490; J7030; J7040; J7050; Q9967; 87186